=== PATIENT | female | born 1945 | race Caucasian/White ===

== ENCOUNTER 2016-09-15 13:22 | Inpatient (IN) | payer MEDICARE, OTHER ==
[~2016-09-15] VITALS: Ht 165.1 cm; Wt 73.0 kg
--- NOTE | 2016-09-16 16:52 | NUR ---
1650- PATIENT TAKEN TO OR PER HOSPITAL BED VIA OR NURSING STAFF. NO S/S OF DISTRESS, NO COMPLAINTS. FAMILY AT BEDSIDE.
--- NOTE | 2016-09-19 11:04 | NUR ---
1030- HERE TO SEE AND ASSESS PT AT THIS TIME. UPDATED ON PT CONDITION. MONITORING FOR URINARY RETENTION
--- NOTE | 2016-09-19 11:04 | NUR ---
0830-ZOFRAN 4MG IV GIVEN FOR C/O NAUSEA AT THIS TIME
--- NOTE | 2016-09-19 14:34 | NUR ---
1330-B. MALORIE ATKINSON NOTIFIED OF PT CONTINUED UNABLE TO VOID. BLADDER SCAN REVEALED APPROX. 450ML URINE. N/O'S NOTED TO I/O CATH. PT I/O CATHED AT THIS TIME WITH 550ML MED YELLOW URINE OBTAINED. 1350- NOTIFIED OF PT WITH NO DOCUMENTED BM SINCE 09/14/16. N/O'S NOTED FOR DUCOLOX SUPP. PRN
== END 2016-09-20 19:10 | DRG 481 ==
LOC: ER 13:22 → MED 16:38
PROVIDERS: ADMIT Internal Medicine
PROC: 0QS606Z Reposition Right Upper Femur with Intramedullary Internal Fixation Device, Open Approach (ICD-10-PCS; principal; 2016-09-16)
PROC: 30233N1 Transfusion of Nonautologous Red Blood Cells into Peripheral Vein, Percutaneous Approach (ICD-10-PCS; 2016-09-18)
DX: S72.141A Displaced intertrochanteric fracture of right femur, initial encounter for closed fracture (principal); D62 Acute posthemorrhagic anemia; N17.9 Acute kidney failure, unspecified; I69.354 Hemiplegia and hemiparesis following cerebral infarction affecting left non-dominant side; W01.0XXA Fall on same level from slipping, tripping and stumbling without subsequent striking against object, initial encounter; Y92.009 Unspecified place in unspecified non-institutional (private) residence as the place of occurrence of the external cause; R33.8 Other retention of urine; I95.9 Hypotension, unspecified; J44.9 Chronic obstructive pulmonary disease, unspecified; K21.9 Gastro-esophageal reflux disease without esophagitis; G89.29 Other chronic pain; M54.5 Low back pain; I25.10 Atherosclerotic heart disease of native coronary artery without angina pectoris; Z95.1 Presence of aortocoronary bypass graft; E78.5 Hyperlipidemia, unspecified; F41.9 Anxiety disorder, unspecified; F32.9 Major depressive disorder, single episode, unspecified; Z88.5 Allergy status to narcotic agent; Z91.011 Allergy to milk products; Z79.82 Long term (current) use of aspirin; Z79.899 Other long term (current) drug therapy; F17.210 Nicotine dependence, cigarettes, uncomplicated; I25.2 Old myocardial infarction; T40.605A Adverse effect of unspecified narcotics, initial encounter; I12.9 Hypertensive chronic kidney disease with stage 1 through stage 4 chronic kidney disease, or unspecified chronic kidney disease; E11.22 Type 2 diabetes mellitus with diabetic chronic kidney disease; N18.3 Chronic kidney disease, stage 3 (moderate); Z66 Do not resuscitate; M21.372 Foot drop, left foot
CPT/HCPCS: 36415; 73502-RT; 73552-RT; 97161-GP; 97166; C1713; J1650; J2704; P9021; P9047

== ENCOUNTER 2016-09-15 13:22 | Emergency (ER) | payer MEDICARE, OTHER | END 2016-09-15 16:37 | disposition critical access hospital (66) | LOC: ER 13:22 | DX: S72.141A Displaced intertrochanteric fracture of right femur, initial encounter for closed fracture (principal); J44.9 Chronic obstructive pulmonary disease, unspecified; N28.9 Disorder of kidney and ureter, unspecified; I10 Essential (primary) hypertension; E11.9 Type 2 diabetes mellitus without complications; F41.9 Anxiety disorder, unspecified; E78.5 Hyperlipidemia, unspecified; I25.10 Atherosclerotic heart disease of native coronary artery without angina pectoris; I25.2 Old myocardial infarction; F17.200 Nicotine dependence, unspecified, uncomplicated; Z86.73 Personal history of transient ischemic attack (TIA), and cerebral infarction without residual deficits; Z95.1 Presence of aortocoronary bypass graft; Z79.82 Long term (current) use of aspirin; Z79.4 Long term (current) use of insulin; Z79.899 Other long term (current) drug therapy; Z88.5 Allergy status to narcotic agent; W19.XXXA Unspecified fall, initial encounter; Y93.01 Activity, walking, marching and hiking; Y92.009 Unspecified place in unspecified non-institutional (private) residence as the place of occurrence of the external cause | CPT/HCPCS: 36415; 51702; 73502-RT; 73552-RT; 96374; 96375 ==